=== PATIENT | female | born 1960 | race Caucasian/White ===

== ENCOUNTER 2018-07-12 00:06 | Inpatient (IN) | payer BC, OTHER ==
[~2018-07-12] VITALS: Ht 167.6 cm; Wt 44.9 kg
[2018-07-12 00:35] VITALS: BP 118/76
--- NOTE | 2018-07-12 00:35 | NUR ---
RN Notes Admitted a 58 years old, female, white pt from [facility] via gurney accompanied by 2 EMT. Pt admitted on a 5150 hold for suicidal ideation. Pt ids alert and oriented x3, calm and cooperative, noted to be depressed with flat affect. On room air and tolerated well, Pt denies any pain and discomfort. Skin and body assessment done, noted with sacral redness/excoriation, pt refused to be cleased with NS and to be covered with mepilex. Pt is under psychiatric care of Dr Ott and Medical management of Dr Stover. All belongings were checked for contraband. Pt oriented to room, floor and staff with all questions answered and verbalized understanding. Pt educated on the use of call kirkpatrick. Kept bed on the lowest position, locked, side rails up x2. Safety measures and fall precaution observed. Will continue to monitor pt.
[2018-07-12] MEDS ORDERED: MAG HYDROX/AL HYDROX/SIMETH 30 ML UDC PO PRN (01:00)
[2018-07-12] MEDS ORDERED: MAGNESIUM HYDROXIDE 30 ML UDC PO PRN (01:00)
[2018-07-12] MEDS ORDERED: ACETAMINOPHEN 325 MG TABLET PO PRN (01:00)
[2018-07-12] MEDS ORDERED: ACID1TAB14 PO (01:14)
[2018-07-12] MEDS ORDERED: CYAN10006 IM (01:14)
[2018-07-12] MEDS ORDERED: FERR325T23 PO (01:15)
[2018-07-12] MEDS ORDERED: FURO-145 PO (01:16)
[2018-07-12] MEDS ORDERED: GLUC-138 PO (01:17)
[2018-07-12] MEDS ORDERED: PANT40TA2 PO (01:18)
[2018-07-12] MEDS ORDERED: RIFA550T PO (01:19)
[2018-07-12] MEDS ORDERED: SPIR50TA5 PO (01:20)
[2018-07-12] MEDS ORDERED: ZINC50TA4 PO (01:21)
[2018-07-12] MEDS: LORAZEPAM 1 MG TABLET PO PRN ×4 (03:05→20:15)
--- NOTE | 2018-07-12 03:05 | NUR ---
RN Notes Pt looks anxious, not sleeping, keep getting out of bed and going out of the room. Ativan 1 mg tab given po and tolerated well. Will continue to monitor pt.
[2018-07-12 08:00] VITALS: BP 153/93
--- NOTE | 2018-07-12 10:15 | NUR ---
WOUND CARE CONSULT: PT REFUSED SKIN ASSESSMENT. PT IS AMBULATORY AND CONTINENT. WILL SEE PRN. CURRENT JERARDO SCORE IS 20.
--- NOTE | 2018-07-12 11:34 | NUR ---
Initial Discharge Plan: Pt currently resides by herself in her home located at [address] [place] [address]; ([phone]). Per pt, she would like to return home upon discharge. SW will work with the pt and the MD regarding appropriate discharge planning. SW will form a safe and proper discharge.
--- NOTE | 2018-07-12 11:43 | NUR ---
REIN called the pt's partner, Chaparro Davies ([phone]), and left a message on his voicemail asking for him to call the SW so that discharge planning can be discussed.
[2018-07-12 16:50] VITALS: BP 135/81
[2018-07-12] MEDS: FUROSEMIDE 20 MG TABLET PO SCH (17:57)
[2018-07-12] MEDS: RIFAXIMIN 550 MG TABLET PO SCH (17:58)
--- NOTE | 2018-07-12 19:05 | NUR ---
RN NOTES RECEIVED PT RESTING IN BED. NO APPARENT S/S OF DISTRESS AT THIS TIME. WILL CONTINUE TO MONITOR FOR PATIENT SAFETY.
--- NOTE | 2018-07-12 20:15 | NUR ---
RN NOTES PT REQUESTED PRN PO ATIVAN. WILL ADMINISTER AND CONTINUE TO MONITOR.
[2018-07-12 20:23] VITALS: BP 130/84
[2018-07-12] MEDS ORDERED: TRAZODONE 50 MG TABLET PO SCH (22:00)
[2018-07-12] MEDS ORDERED: TRAZODONE 50 MG TABLET PO ONE (22:00)
[2018-07-12] MEDS: TEMAZEPAM 15 MG CAPSULE PO PRN (22:07)
[2018-07-13] MEDS: LORAZEPAM 1 MG TABLET PO PRN ×5 (02:15→21:32)
--- NOTE | 2018-07-13 02:15 | NUR ---
RN NOTES PT REQUESTED PRN PO ATIVAN. WILL ADMINISTER AND CONTINUE TO MONITOR.
[2018-07-13 08:00] VITALS: BP 151/99
[2018-07-13] MEDS: NICOTINE PATCH (21MG) 21 MG PATCH.TD24 TD SCH (08:43)
[2018-07-13] MEDS: ZINC SULFATE 220 MG CAPSULE PO SCH (08:48)
[2018-07-13] MEDS: FUROSEMIDE 20 MG TABLET PO SCH ×2 (08:48→17:25)
[2018-07-13] MEDS: SPIRONOLACTONE 25 MG TABLET PO SCH (08:48)
[2018-07-13] MEDS: ACIDOPHILUS/BULGARICUS 1 EACH TAB.CHEW PO SCH (08:48)
[2018-07-13] MEDS: RIFAXIMIN 550 MG TABLET PO SCH ×2 (08:48→17:23)
[2018-07-13] MEDS: PANTOPRAZOLE 40 MG TABLET.DR PO SCH (08:48)
[2018-07-13] MEDS: FERROUS SULFATE (325 MG) 325 MG/TAB TABLET PO SCH (08:48)
[2018-07-13] MEDS ORDERED: SPIRONOLACTONE 50 MG TABLET PO SCH (09:00)
--- NOTE | 2018-07-13 10:38 | NUR ---
ERIN called [facility] ([phone]) to find out how many days are authorized for the pt. ERIN was redirected to the pt's hearing healthcare practitioner, Cipriano ([phone] ext [phone]).
--- NOTE | 2018-07-13 10:39 | NUR ---
UR Note: ERIN called Cipriano ([phone] ext [phone]), care management associate for [facility], and left a message on his confidential voicemail asking for information regarding how many days the pt is authorized for inpatient stay. ERIN also asked when she should send a clinical and to what fax number.
[2018-07-13 10:42] LABS: BASOPHILS % (AUTO) 0.3 % (0.0-2.0); EOSINOPHILS % (AUTO) 0.7 % (0.0-6.0); HEMATOCRIT 43 % (33-45); HEMOGLOBIN 14.7 g/dL (11.5-14.8); LYMPHOCYTES # (AUTO) 0.9 /CMM (0.8-4.8); LYMPHOCYTES % (AUTO) 15.8 % (20.0-44.0); MEAN CORPUSCULAR HEMOGLOBIN 31 PG (26.0-33.0); MEAN CORPUSCULAR HGB CONC 34 g/dl (31.0-36.0); MEAN CORPUSCULAR VOLUME 92 fL (82-100); MONOCYTES # (AUTO) 0.3 /CMM (0.1-1.30); MONOCYTES % (AUTO) 4.9 % (2.0-12.0); NEUTROPHILS # (AUTO) 4.6 /CMM (1.8-8.9); NEUTROPHILS % (AUTO) 78.3 % (43.0-81.0); PLATELET COUNT (AUTO) 164 /CMM (150-450); RDW COEFFICIENT OF VARIATION 14.2 (11.5-15.0); WHITE BLOOD COUNT (AUTO) 5.9 K/uL (4.3-11.0)
--- NOTE | 2018-07-13 10:57 | NUR ---
Cipriano ([phone] ext [phone]), nursing care partner for [facility], called the SW and informed her that the pt is authorized until tomorrow and stated that he wants a verbal clinical to be left on his voicemail. He also stated that he wants the Hold paperwork to be faxed over today to the fax number: [phone].
[2018-07-13 11:05] LABS: ALBUMIN 4.2 g/dL (3.4-5.0); CALCIUM, SERUM 9.7 mg/dL (8.5-10.1); CREATININE 0.9 mg/dL (0.6-1.3); POTASSIUM 5.5 mmol/L (3.5-5.1)
[2018-07-13] MEDS ORDERED: NICOTINE PATCH (21MG) 21 MG PATCH.TD24 TD ONE (14:00)
[2018-07-13 16:00] VITALS: BP 122/64
--- NOTE | 2018-07-13 19:00 | NUR ---
GPS RN OPENING NOTE: RECEIVED PT WALKING AROUND. NO S/S OF DISTRESS. NO SOB NOTED. PT IS A/OX4. ON ROOM AIR AND TOLERATING WELL. PT DENIES SUICIDE IDEATIONS OR HOMICIDAL IDEATIONS AT THIS TIME. PT EDUCATED ON THE OF OF THE CALL HINTON. CALL LIGHT WITHIN PT'S REACH. BED KEPT IN LOW, LOCKED POSITION, AND SIDE RAILS X 2UP. WILL CONTINUE TO MONITOR PT.
[2018-07-13 20:00] VITALS: BP 124/78
[2018-07-13 20:10] VITALS: BP 130/84
[2018-07-13] MEDS ORDERED: TRAZODONE 50 MG TABLET PO SCH (22:00)
[2018-07-13] MEDS: TEMAZEPAM 15 MG CAPSULE PO PRN (23:34)
--- NOTE | 2018-07-13 23:35 | NUR ---
GPS RN NOTE: PT UNABLE TO SLEEP AND REQUESTED FOR SLEEPING AID. PT ADMINISTERED RESTORIL. WILL CONTINUE TO MONITOR PT.
--- NOTE | 2018-07-14 06:46 | NUR ---
GPS RN CLOSING NOTE: ALL NEEDS WERE ATTENDED AND ANTICIPATED FOR. PT ANTICIPATING FOR COFFEE AND BREAKFAST. NO SOB NOTED. NO S/S OF DISTRESS. CALL HINTON WITHIN PT'S REACH. BED KEPT IN LOW, LOCKED POSITION, AND SIDE RAILS X 2UP. WILL ENDORSE TO AM NURSE FOR BELINDA.
[2018-07-14] MEDS: ZINC SULFATE 220 MG CAPSULE PO SCH (08:14)
[2018-07-14] MEDS: ACIDOPHILUS/BULGARICUS 1 EACH TAB.CHEW PO SCH (08:14)
[2018-07-14] MEDS: RIFAXIMIN 550 MG TABLET PO SCH (08:14)
[2018-07-14] MEDS: PANTOPRAZOLE 40 MG TABLET.DR PO SCH (08:14)
[2018-07-14] MEDS: NICOTINE PATCH (21MG) 21 MG PATCH.TD24 TD SCH (08:14)
[2018-07-14] MEDS: FUROSEMIDE 20 MG TABLET PO SCH (08:14)
[2018-07-14] MEDS: FERROUS SULFATE (325 MG) 325 MG/TAB TABLET PO SCH (08:14)
[2018-07-14] MEDS: SPIRONOLACTONE 25 MG TABLET PO SCH (08:17)
[2018-07-14 08:25] VITALS: BP 127/75
--- NOTE | 2018-07-14 08:59 | NUR ---
DR. JACOBS GAVE AN ORDER TO D/C HOLD AND D/C TODAY AND TO FOLLOW UP WITH PSYCH AND MEDICAL DOCTORS.
--- NOTE | 2018-07-14 10:18 | NUR ---
GPS/RN-NOTES PATIENT WAS DISCHARGE TO HOME TODAY. DR. JACOBS MADE AWARE WITH ORDERS ALSO DR. ROME MADE AWARE WITH ORDERS TO CONTINUE ALL HOME MEDICATIONS AND D/C ALL PRN MEDICATIONS. ALL DISCHARGE MEDICATIONS WAS REVIEWED WITH THE PATIENT WITH UNDERSTANDING RX WAS GIVEN TO THE PATIENT. PER PATIENT SHE STILL HAVE ALL HER MEDICATIONS AT HOME AND THAT SHE DON'T NEED MEDICAL PRESCRIPTIONS. PATIENT DID NOT VERBALIZE SI/HI,DENIES VISUAL,AUDITORY HALLUCINATIONS AT THE TIME OF DISCHARGE. PATIENT LEFT THE UNIT IN STABLE CONDITION ALERT ORIENTED X3,AMBULATORY WITH STEADY GAIT,LEFT THE UNIT WITH ALL HER BELONGINGS. PRIOR TO THE DISCHARGE PATIENT STRONGLY REFUSED FULL BODY ASSESSMENT DESPITE EXPLANATIONS OF THE HOSPITAL POLICIES. 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
--- NOTE | 2018-07-14 10:53 | NUR ---
UR Note: ERIN faxed the hold paperwork for the pt to Cipriano ([phone] ext [phone]) from [facility] to the fax number: [phone].
--- NOTE | 2018-07-14 11:03 | NUR ---
Discharge Note: Pt was discharged home to [address] [place] [address]; ([phone]). Pt was picked up by her brother, Cristofer Ventura ([phone]), at 10AM. Upon discharge, the pt stated that she was excited to be leaving the facility because she wants to return to her normal life. Pt appeared to be in a euthymic mood with an excited affect. Pt denied having any suicidal and homicidal ideation as well as both auditory and visual hallucinations. Pt was provided with three substance abuse referrals as well as two smoking cessation referrals that are listed below. Pt was referred to being under the care of psychiatrist, Dr. Frank [place], [place] at [address] [place] [address]; and will be under the care of her presto log operator, Dr. Lowell Sharma, located at [address] [facility] [address] [address]; . Substance Abuse Referrals [facility] [address] [place] [address] Tel. [facility] [address] [place] Provider Mental Health Treatment Tele-dermatology HIV Services Telemedicine [facility] [address] [place] [address] [facility] [address] [place] [address] Smoking cessation referrals: [employer] 800-LUNGUSA [employer] [phone]
--- NOTE | 2018-07-14 13:08 | NUR ---
UR Note: ERIN faxed a discharge clinical for the pt to Cipriano ([phone] ext [phone]) from [facility] to the fax number: [phone].
[2018-08-16] MEDS ORDERED: CYANOCOBALAMIN 1,000 MCG/ML VIAL IM SCH (09:00)
== END 2018-07-14 10:15 | disposition home or self-care (01) | DRG 881 ==
LOC: GPS 00:25
PROVIDERS: ADMIT Psychiatry & Neurology Psychiatry; ATTEND Internal Medicine
DX: F32.9 Major depressive disorder, single episode, unspecified (principal); E44.0 Moderate protein-calorie malnutrition; Z68.1 Body mass index [BMI] 19.9 or less, adult; E87.1 Hypo-osmolality and hyponatremia; R45.851 Suicidal ideations; F10.10 Alcohol abuse, uncomplicated; R74.0 Nonspecific elevation of levels of transaminase and lactic acid dehydrogenase [LDH]; E87.5 Hyperkalemia; E86.0 Dehydration
CPT/HCPCS: 36415; 80053-TC; 80061-TC; 85025-TC